=== PATIENT | female | born 1935 | race Caucasian/White ===

== ENCOUNTER 2016-06-12 07:46 | Emergency (ER) | payer OTHER ==
--- NOTE | 2016-06-12 09:27 | DIAGNOSTIC IMAGING REPORT ---
PROCEDURE: CT HEAD WITHOUT CONTRAST INDICATION: UNRESPONSIVE TECHNIQUE: Axial CT images were acquired through the head. Coronal and sagittal reformations were created. COMPARISON: None. FINDINGS: Mild motion through the posterior fossa. Moderate cerebral cortical atrophy. Mild hypodensity in the periventricular and subcortical white matter. No intracranial hemorrhage or extraaxial fluid collections. Ventricles are normal in size, shape and position. There is no mass, mass effect or midline shift. The romero-white matter differentiation is normal. There is no edema. Mild calcific atherosclerosis of the intracranial internal carotid arteries. The calvarium is intact. The paranasal sinuses and mastoid air cells are normally aerated. The extracranial soft tissues and orbits are normal. IMPRESSION: 1. No CT evidence of acute intracranial process. 2. Age related involutional and white matter changes. 3. Findings discussed with Dr. Pereyra at 09:[address] scans at this facility use dose modulation, iterative reconstruction, and/or weight-based dosing when appropriate to reduce radiation dose to as low as reasonably achievable.
--- NOTE | 2016-06-12 09:35 | DIAGNOSTIC IMAGING REPORT ---
PROCEDURE: CT CERVICAL SPINE W/O CONTRAST INDICATION: UNRESPONSIVE TECHNIQUE: Axial CT images were obtained through the cervical spine. Coronal and sagittal reformations were created. No comparison. COMPARISON: None. FINDINGS: The craniocervical junction is intact with moderate hypertrophic degeneration. The cervical vertebral bodies are normal in height without evidence of fracture. Moderate endplate spurring from C5 through T2. Moderately severe disc height loss C5-6 and mild disc height loss elsewhere, particularly T1-2. There is trace degenerative grade 1 anterolisthesis C4-5 and retrolisthesis C6-7 secondary to facet degeneration. There is ankylosis of right facet joints C2- C4. No suspicious density in the central canal. No significant central canal stenosis. No prevertebral or paravertebral soft-tissue swelling. Endotracheal tube is in place. Upper lungs are normally aerated. In the right posterior mediastinum, there is an ovoid, longitudinally oriented, soft tissue mass measuring approximately 3.5 x 3.5 by at least 7.6 cm anteriorly displacing the distal trachea extending at least to the kait. IMPRESSION: 1. No CT evidence of acute cervical spine trauma. 2. Age appropriate degenerative changes to the cervical spine. 3. Right posterior mediastinal mass, uncertain etiology. Further evaluation with contrast enhanced chest CT is recommended. 4. Discussed with Dr. Pereyra in the emergency room. All CT scans at this facility use dose modulation, iterative reconstruction, and/or weight-based dosing when appropriate to reduce radiation dose to as low as reasonably achievable.
--- NOTE | 2016-06-12 09:38 | DIAGNOSTIC IMAGING REPORT ---
PROCEDURE: XR CHEST 1 VIEW INDICATION: UNRESPONSIVE TECHNIQUE: Single view chest. 08:40 hours COMPARISON: None. FINDINGS: Endotracheal tube is in satisfactory position. Normal sized heart. Mild aortic atherosclerosis. Normally aerated lungs. Tiny bilateral pleural effusions versus bibasilar atelectatic change/prior. Intact osseous structures. IMPRESSION: 1. Tiny bilateral effusions versus bibasilar scarring. 2. Adequate position of endotracheal tube.
--- NOTE | 2016-06-12 11:39 | DIAGNOSTIC IMAGING REPORT ---
PROCEDURE: CTA THORAX ABDOMEN PELVIS INDICATION: DISSECTION TECHNIQUE: 116 ml of Isovue 370 was injected intravenously and axial images were obtained of the chest, abdomen, and pelvis with 3D sagittal and coronal MIP reconstructions. COMPARISON: Correlation made to CT cervical spine performed the same day FINDINGS: Right posterior mediastinal mass is a fluid-filled patulous esophagus with diffuse circumferential wall thickening which courses through the right posterior mediastinum into the esophageal hiatus. No evidence of transition point as the stomach demonstrates a moderate amount of fluid and air fluid level. Thoracic aorta is normal caliber with mild atherosclerotic calcification. No evidence of aneurysm, dissection, ulceration, or hematoma. The great vessels demonstrates normal branching pattern. Normal opacification of the pulmonary arterial tree without filling defect. The central pulmonary arteries are normal caliber. Heart size is normal. No pericardial effusion. No adenopathy or other mediastinal masses. Endotracheal tube is in place with the tip in satisfactory position above the kait. There is mild right lower lobe peribronchial thickening and dependent atelectatic change/small consolidation posteriorly throughout the right lower lobe. Mild left lower lobe bronchiectasis with very minor peribronchial thickening. Slight left lower lobe atelectasis. No pleural effusions or pneumothorax. Severe degenerative changes in both shoulders. No acute fractures. The abdominal aorta is normal in course, contour, and caliber with mild to moderate atherosclerosis. Renal arteries and superior mesenteric arteries are patent. The inferior mesenteric artery is visible and patent. Iliac bifurcations appear normal. Mild inflammatory changes and trace fluid in the lesser sac adjacent to the otherwise normal appearing pancreas. Hyperemic mucosa mildly distended, fluid- filled stomach. No extraluminal gas. The proximal duodenum is also fluid-filled and distended. No focal inflammatory changes. There are a few loops of centralized anterior moderately prominent small bowel without transition point. The colon demonstrates diffuse diverticulosis. The liver is mildly hypodense. The gallbladder wall is diffusely thickened, nonspecific. The adrenal glands, spleen, kidneys, inferior vena cava and the ureters appear normal. Small fat containing right inguinal hernia. Pelvic arteries are patent with mild atherosclerotic calcification. The lower bowel loops including colon and rectum demonstrate moderate retained, mainly rectal stool. No surrounding inflammatory changes. Chase catheter decompresses urinary bladder. The uterus is surgically absent. No free fluid or adenopathy. Osseous structures demonstrate degenerative changes right hip replacement hardware is present. As well as right hip replacement hardware. IMPRESSION: 1. Right superior mediastinal mass is patulous, thickened, fluid-filled esophagus. In combination with distended, fluid-filled stomach, NG tube placement is recommended. 2. Bilateral lower lobe peribronchial thickening and mild atelectatic changes. Findings suggestive of bronchitis, uncertain chronicity. 3. No pulmonary embolus or aortic pathology. 4. Nonspecific lesser sac inflammation in the upper abdomen, with mildly hyperemic gastric mucosa may suggest diffuse gastritis. This could be reactive to other systemic process. 5. Prominence loops of small bowel suggest ileus, likely reactive. 6. Diverticulosis without acute diverticulitis. 7. Findings called to the emergency room.
--- NOTE | 2016-06-12 11:40 | DIAGNOSTIC IMAGING REPORT ---
PROCEDURE: XR CHEST 1 VIEW INDICATION: POST CENTRAL LINE PLACEMENT TECHNIQUE: Single view chest. 09:37 hours COMPARISON: 08:40 hours FINDINGS: New right IJ central venous line appears in good position. Endotracheal tube is stable. Stable cardiomediastinal contour with mild prominence of the right paratracheal stripe secondary to distended esophagus seen on CT scan. No significant central venous congestion. No pneumothorax. Stable osseous structures. IMPRESSION: 1. Good placement of right IJ central venous line. 2. Otherwise stable.
--- NOTE | 2016-06-12 11:55 | ED CLINICAL REPORT ---
Clinical Report - Physicians/Mid Levels [facility] [address] [place] [address] 06/12/2016 7:47 Patient: KAILYN NEWMAN Time Seen: 0748. Arrived- By ambulance. Historian- EMS personnel. Unobtainable due to patient's altered mental status. HISTORY OF PRESENT ILLNESS Chief Complaint: altered. This started unknown. last seen yesterday. and is still present. It is not gone now. It has been constant (unknown timing). (lives with grand daughter. life alert paged medics to the house. no known abnormal behavior noted by family. unknown why or who life alert was activated per medics.). Similar symptoms previously: ( unable to obtain secondary to patient's medical condition). Recent medical care: ( unable to obtain secondary to patient's medical condition). REVIEW OF SYSTEMS Unobtainable due to patient's altered mental status. PAST HISTORY See nurses notes. Medications: Omeprazole Oral 20 mg, daily. Allergies: NKDA. SOCIAL HISTORY unknown however medics report bottle of alcohol near by. FAMILY HISTORY Unable to obtain family medical history due to patient's altered mental status. ADDITIONAL NOTES The nursing notes have been reviewed. PHYSICAL EXAM Vital Signs: 06/12/2016 07:57 BP: 82/67. HR: 101. RR: 12. O2 saturation: 84%. Temp: 84.1 F. Hypotensive. Tachycardic. Hypothermic. Oxygen saturation low. Appearance: ( altered. obviously ill.). Patient in severe distress. (does not follow commands). Head: Head atraumatic. Eyes: Pupillary exam: Right pupil 7mm and reactive to light directly and consensually and with accommodation. Left pupil: 7mm and reactive to light directly and consensually and with accommodation. ENT: Airway intact. Dry mucous membranes present. (dark dried blood to the oropharynx). Neck: Normal inspection. Neck supple. CVS: Abnormal rhythm. Heart sounds normal. Pulses normal. Respiratory: No respiratory distress. Breath sounds normal. No rales, wheezes or rhonchi. Abdomen: Soft and nontender. No organomegaly. Back: Normal inspection. Skin: No cyanosis. Pallor. Cool skin. No skin rash. Extremities: Extremities exhibit normal ROM. No lower extremity edema. Neuro: Altered mental status. Alertness is decreased. Abnormal verbal response (no verbalization). (no facial droop. moves all 4 extremities purposefully but does not follow commands. eyes open spontaneously.). LABS, X-RAYS, AND EKG EKG: Atrial fibrillation (88). Normal QRS complex. Prolonged QT. No ST elevation. EKG signs of hypothermia. small blair waves in V4. The study has been interpreted contemporaneously. The study has been independently viewed by me. Artifact present. Chest X-ray: (PROCEDURE: XR CHEST 1 VIEW INDICATION: UNRESPONSIVE TECHNIQUE: Single view chest. 08:40 hours COMPARISON: None. FINDINGS: Endotracheal tube is in satisfactory position. Normal sized heart. Mild aortic atherosclerosis. Normally aerated lungs. Tiny bilateral pleural effusions versus bibasilar atelectatic change/prior. Intact osseous structures. IMPRESSION: 1. Tiny bilateral effusions versus bibasilar scarring. 2. Adequate position of endotracheal tube.). Chest X-ray #2: (interval placement of right IJ. no pneumothorax). Views: AP (portable). The X-rays were independently viewed by me and interpreted contemporaneously by me. CT C-Spine: (PROCEDURE: CT CERVICAL SPINE W/O CONTRAST INDICATION: UNRESPONSIVE TECHNIQUE: Axial CT images were obtained through the cervical spine. Coronal and sagittal reformations were created. No comparison. COMPARISON: None. FINDINGS: The craniocervical junction is intact with moderate hypertrophic degeneration. The cervical vertebral bodies are normal in height without evidence of fracture. Moderate endplate spurring from C5 through T2. Moderately severe disc height loss C5-6 and mild disc height loss elsewhere, particularly T1-2. There is trace degenerative grade 1 anterolisthesis C4-5 and retrolisthesis C6-7 secondary to facet degeneration. There is ankylosis of right facet joints C2-C4. No suspicious density in the central canal. No significant central canal stenosis. No prevertebral or paravertebral soft-tissue swelling. Endotracheal tube is in place. Upper lungs are normally aerated. In the right posterior mediastinum, there is an ovoid, longitudinally oriented, soft tissue mass measuring approximately 3.5 x 3.5 by at least 7.6 cm anteriorly displacing the distal trachea extending at least to the kait. IMPRESSION: 1. No CT evidence of acute cervical spine trauma. 2. Age appropriate degenerative changes to the cervical spine. 3. Right posterior mediastinal mass, uncertain etiology. Further evaluation with contrast enhanced chest CT is recommended.). The study was independently viewed by me and interpreted by the radiologist. The study was discussed with the radiologist (via pacs). CT Head: (PROCEDURE: CT HEAD WITHOUT CONTRAST INDICATION: UNRESPONSIVE TECHNIQUE: Axial CT images were acquired through the head. Coronal and sagittal reformations were created. COMPARISON: None. FINDINGS: Mild motion through the posterior fossa. Moderate cerebral cortical atrophy. Mild hypodensity in the periventricular and subcortical white matter. No intracranial hemorrhage or extraaxial fluid collections. Ventricles are normal in size, shape and position. There is no mass, mass effect or midline shift. The romero-white matter differentiation is normal. There is no edema. Mild calcific atherosclerosis of the intracranial internal carotid arteries. The calvarium is intact. The paranasal sinuses and mastoid air cells are normally aerated. The extracranial soft tissues and orbits are normal. IMPRESSION: 1. No CT evidence of acute intracranial process. 2. Age related involutional and white matter changes.). Head CT performed without contrast. The study was independently viewed by me and interpreted by the radiologist. The study was discussed with the radiologist (via pacs). Laboratory Tests: UA-Culture if indicated: (MILO: 06/12/2016 08:15) ( MsgRcvd 06/12/2016 10:46) Final results Test Result Flag Units (Reference) URINE COLOR YELLOW URINE APPEARANCE CLEAR URINE GLUCOSE NEGATIVE (NEGATIVE) URINE BILIRUBIN NEGATIVE (NEGATIVE) URINE KETONE 1+ (NEGATIVE) URINE SPECIFIC GRAVITY >= 1.030 (1.010-1.030) URINE PH 5.0 (5.0-8.0) URINE PROTEIN 1+ (NEGATIVE) URINE UROBILINOGEN 0.2 EU/dL (0.2-1.0) URINE NITRITE POSITIVE (NEGATIVE) URINE BLOOD 3+ (NEGATIVE) URINE LEUK ESTERASE NEGATIVE (NEGATIVE) URINE RBC 5-10 rbc/hpf (0-1) URINE WBC 1-3 wbc/hpf (0-1) URINE EPITHELIAL CELLS 5-10 EPI/hpf (0-5) URINE BACTERIA MODERATE (2+ TO 3+) (NONE SEEN) URINE COMMENT CULTURE INDICATED URINE CULTURES ARE SET-UP BASED ON THE FOLLOWING CRITERIA:POSITIVE NITRITEPOSITIVE LEUKOCYTE ESTERASEGREATER THAN 10 WHITE BLOOD CELLSMODERATE (2+) OR GREATER BACTERIA [id number]: (MILO: 06/12/2016 08:15) ( [facility] 06/16/2016 11:46) Final results Test Result Flag Units (Reference) ETHANOL URINE 0.201 Verified by repaet analysis CBC w Diff: (MILO: 06/12/2016 09:42) ( [facility] 06/12/2016 10:22) Final results Test Result Flag Units (Reference) WHITE BLOOD COUNT 19.8 H K/uL (4.5-11.5) RED BLOOD COUNT 3.16 L M/uL (4.00-5.20) HEMOGLOBIN 9.8 L gm/dL (12.0-16.0) HEMATOCRIT 33.1 L % (36.0-46.0) MEAN CELL VOLUME 105 H fL (80-100) MEAN CORPUSCULAR HGB 31 pg (26-34) MEAN CORPUSCULAR HGB CONC 30 L g/dL (31-37) RED CELL DISTRIBUTION WIDTH 23.0 H % (11.6-14.8) PLATELET COUNT 348 K/uL (150-400) NEUTROPHIL % 84.1 H % (50-75) LYMPH % 10.3 L % (25-40) MONO % 5.5 % (3-14) EOSINOPHIL % 0.1 % (0-4) BASOPHIL % 0 % (0-2) RBC MORPHOLOGY 1+ KEITH CELLS~~OCC SCHISTOCYTES~~2+ ANISOCYTOSIS~~2+ POIKILOCYTOSIS PT with INR: (MILO: 06/12/2016 08:15) ( [facility] 06/12/2016 08:48) Final results Test Result Flag Units (Reference) INR 1.6 H (0.8-1.2) Low Intensity Therapy: INR 1.5-2.0 PT range 18.5-23.1Mod.Intensity Therapy: INR 2.0-3.0 PT range 23.1-31.5High Intensity Therapy: INR 2.5-3.5 PT range 27.4-35.5High Intensity Therapy 2: INR 3.0-4.0 PT range 31.5-39.3 APTT 33 SECONDS (24-34) Lactate, Serum: (MILO: 06/12/2016 09:53) ( MsgRcvd 06/12/2016 10:26) Final results Test Result Flag Units (Reference) LACTIC ACID 25.2 H mmol/L (0.4-2.0) CMP: (MILO: 06/12/2016 09:44) ( MsgRcvd 06/12/2016 10:06) Final results Test Result Flag Units (Reference) GLUCOSE 294 H mg/dL (70-110) BUN 35 H mg/dL (7-18) CREATININE 1.9 H mg/dL (0.6-1.3) Estimated GFR 26.90 mL/min Estimated GFR- 32.60 mL/min Note: Persistent reduction over 3 months in eGFR<60 mL/min/1.73 m2 defines CKD. Patients with eGFR values>=60 mL/min/1.73 m2 may also have CKD if evidence ofpersistent proteinuria. Additional information may be foundat www.kidney.org. SODIUM 149 H mmol/L (136-145) POTASSIUM 3.1 L mmol/L (3.5-5.1) CHLORIDE 103 mmol/L (98-107) CARBON DIOXIDE 2 *L mmol/L (21-32) CRITICAL RESULTS CALLEDCalled to EDGAR CORNELL,ER 06/12/16 1006Were 2 patient identifiers used? YWas the result read back? Y CALCIUM 9.2 mg/dL (8.5-10.1) TOTAL PROTEIN 5.9 L g/dL (6.4-8.2) ALBUMIN 2.9 L g/dL (3.3-5.0) BILIRUBIN, TOTAL 0.3 mg/dL (0.0-1.0) ALKALINE PHOSPHATASE 169 H U/L (46-116) AST (SGOT) 166 H U/L (15-37) ALT (SGPT) 92 H U/L (12-78) [id number]: (MILO: 06/12/2016 08:57) ( MsgRcvd 06/12/2016 09:25) Final results Test Result Flag Units (Reference) PROCALCITONIN <0.5 ng/mL (0-0.5) PCT Concentration: Interpretation : Risk/option for action PCT <=0.5 ng/mL : Systemic : Low risk forinfection(sepsis): progression to severeis not likely. : systemic infection.Local bacterial : CAUTION-PCT levelsinfection is : below 0.5 ng/mL do notpossible. : exclude an infection,because localizedinfections (withoutsystemic signs) may beassociated with suchlow levels. If PCT ismeasured very earlyafter a bacterialchallenge (usually <6hours), these valuesmay still be low. Inthis case PCT shouldbe re-assessed 6-24hours later. PCT >0.5 and : Systemic infection: Moderate risk for<= 2 ng/mL : (sepsis) is : progression to severepossible, but : systemic infection.other conditions : The patient should beare known to : closely monitoredelevate PCT. : both clinically andby re-assessing PCTwithin 6-24 hours. PCT > 2 ng/mL : Systemic infection: High risk for(sepsis) is likely: progression to severeunless other : systemic infection.causes are known. : PCT >= 10 ng/mL : Important systemic: High likelihood ofinflammatory : severe sepsis orresponse, almost : septic shock.exclusively due to:severe bacterial :sepsis or septic :shock. : Ammonia Level: (MILO: 06/12/2016 08:15) ( [facility] 06/12/2016 08:55) Final results Test Result Flag Units (Reference) AMMONIA 129 H umol/L (11-32) Salicylate Level: (MILO: 06/12/2016 08:15) ( [facility] 06/12/2016 09:07) Final results Test Result Flag Units (Reference) SALICYLATE 3.1 mg/dL (2.8-20) Lipase: (MILO: 06/12/2016 08:15) ( [facility] 06/12/2016 09:42) Final results Test Result Flag Units (Reference) LIPASE 226 U/L (73-393) CPK 578 H U/L (24-260) TROPONIN I <0.05 ng/mL (0.00-1.5) TROPONIN REFERENCE RANGE:<0.1 NEGATIVE0.1-1.5 INDETERMINANT>1.5 POSITIVE ACETAMINOPHEN 1.5 L ug/mL (10-30) ETHYL ALCOHOL 167 H mg/dL (3-10) THYROID STIMULATING HORMONE 0.765 uIU/mL (0.30-3.74) CK-MB 7.5 H ng/mL (0.5-3.2) %CKMB 1.3 % (0.0-4.0) ACETONE, SERUM QUALITATIVE NEGATIVE (NEGATIVE) Urine Drug Screen: (MILO: 06/12/2016 08:15) ( [facility] 06/12/2016 09:07) Final results Test Result Flag Units (Reference) AMPHETAMINE/METHAMPHETAMINE NEGATIVE (NEGATIVE) BARBITURATE NEGATIVE (NEGATIVE) BENZODIAZEPINE NEGATIVE (NEGATIVE) CANNABINOID NEGATIVE (NEGATIVE) COCAINE NEGATIVE (NEGATIVE) ECSTASY NEGATIVE (NEGATIVE) METHADONE NEGATIVE (NEGATIVE) OPIATE NEGATIVE (NEGATIVE) The urine drug screen is a qualitative screening test fordrug overdose and abuse. All screen results should beconsidered as presumptive.Drugs screened for are as follows:BenzodiazepinesCocaineAmphetamines/MetamphetaminesTHC (Tetrahydrocannabinol)OpiatesBarbituratesEcstasyMethadonePositive results are unconfirmed. For confirmation, notifythe lab for the specimen to be sent to the reference lab.All confirmations must be performed by a differentmethodology.The ingestion of natural herbal and plant productscontaining Ephedra/Ephedra metabolites can produce in urineone or more substances capable of cross reacting withamphetamine/methamphetamine immunoassays. These testsprovide a preliminary result only. A more specificalternative chemical method must be used to obtain aconfirmed analytical result. ABG: (MILO: 06/12/2016 10:58) ( MsgRcvd 06/13/2016 10:45) Final results Test Result Flag Units (Reference) FIO2 100 % (20-101) MODIFIED SUNG TEST POSITIVE? YES ABG PCO2 33.3 L mmHg (35-45) ABG PO2 452.0 *H mmHg (60.0-80.0) ABG KbBxT3s 215.0 H mmHg (7.0-14.0) *NOTE: Normal rangeis based on aFIO2 of 21% ABG SAT O2 98.8 % (95.1-100.0) ABG TOTAL HEMOGLOBIN 8.6 L g/dL (12.0-16.0) ABG O2 HEMOGLOBIN 97.5 % (95.0-100.0) ABG CARBOXYHEMOGLOBIN 0.7 % (0.5-1.5) ABG METHEMOGLOBIN 0.6 % (0.4-1.5) ABG RHEMOGLOBIN 1.2 % ABG: (MILO: 06/12/2016 09:52) ( [facility] 06/13/2016 10:44) Final results Test Result Flag Units (Reference) FIO2 100 % (20-101) MODIFIED SUNG TEST POSITIVE? YES ABG PCO2 41.5 mmHg (35-45) ABG PO2 120.0 H mmHg (60.0-80.0) ABG GdDiI2s 539.0 H mmHg (7.0-14.0) *NOTE: Normal rangeis based on aFIO2 of 21% ABG SAT O2 88.0 L % (95.1-100.0) ABG TOTAL HEMOGLOBIN 9.3 L g/dL (12.0-16.0) ABG O2 HEMOGLOBIN 86.6 L % (95.0-100.0) ABG CARBOXYHEMOGLOBIN 0.8 % (0.5-1.5) ABG METHEMOGLOBIN 0.8 % (0.4-1.5) ABG RHEMOGLOBIN 11.8 % Culture, Urine: (MILO: 06/12/2016 08:05) ( [facility] [place] [place] 06/15/2016 11:33) Final results Test Result Flag Units (Reference) CULTURE, URINE DATE: 06/15/16 PRELIM REPORT: FINAL REPORT -- ESCCOL ESBL ISOLATED?: ESBL ISOLATED * QUANTITATIVE URINE GROWTH: GREATER THAN 100,000 CFU/mL AMOXICILLIN/CLAVULANATE AMPICILLIN R AMPICILLIN/SULBACTAM I CEFAZOLIN R CEFTRIAXONE R CEFEPIME R CEFUROXIME CIPROFLOXACIN S ERTAPENEM S GENTAMICIN R IMIPENEM S LEVOFLOXACIN S MEROPENEM S NITROFURANTOIN S TETRACYCLINE PIP/TAZO S TRIMETHOPRIM/SULFAMETHOXAZOLE R Blood Culture: (MILO: 06/12/2016 09:46) ( [facility] [place] [place] 06/17/2016 09:48) Final results Is patient on antibiotics? N If so, list antibiotic: N/A Test Result Flag Units (Reference) CULTURE, BLOOD NO GROWTH Blood Culture: (MILO: 06/12/2016 08:15) ( [facility] [place] [place] 06/17/2016 08:40) Final results Is patient on antibiotics? N If so, list antibiotic: N/A Test Result Flag Units (Reference) CULTURE, BLOOD NO GROWTH Type & Screen: (MILO: 06/12/2016 11:49) ( MsgRcvd 06/12/2016 13:18) Final results Test Result Flag Units (Reference) PATIENT BLOOD TYPE B Negative Above is a corrected result. Previously reported on ( MsgRcvd 06/12/2016 12:55) as: PATIENT BLOOD TYPE B Negative ANTIBODY SCREEN NEGATIVE . PROGRESS AND PROCEDURES Intubation: ED physician at bedside. Intubated with 7.0 cuffed endotracheal tube. Head placed in neutral position. Size 3 Giuliano blade used. Intubated via orotracheal route. Administered induction agent- ketamine and neuromuscular blocking agent- rocuronium. No complications. Placement confirmed by direct visualization, equal breath sounds and rise and fall of chest wall, rising O2 saturations and end tidal CO2 monitor. Placement confirmed by ET tube CO2 detection device. Tube secured with device and connected to ventilator. (versed). A chest x-ray was obtained: showing good tube position. Tube marked at lip (23 cm). Technique: direct visualization and video assisted. Estimated blood loss: n/a. Procedure successful; two attempts. Central Line Placement: A standardized protocol was used for insertion. Consent precluded by urgency of clinical situation. O2 administered. Placed on pulse oximeter and media monitor. Sedation given. Placed in Trendelenburg. Hand hygiene observed, sterile barrier precautions adhered to (cap, mask, gown, gloves and large sterile sheet) and chlorhexidine skin antisepsis used .16g triple lumen central line placed using Seldinger technique. Good blood return observed. Catheter was secured. Dressing applied. The patient was clinically stable following the procedure. Post-procedure X-ray showed no pneumothorax and good catheter tip position. Estimated blood loss: 2 mL. ( no complications. unable to obtain consent. patient non-verbal and not responsive. unable to contact family and need for line urgent. biopatch applied.). Course of Care: the patient is an 81-year-old female presenting for evaluation of abnormal mental status. Patient was found down. Per EMS, patient was noted to be in her "game room. "Patient had poor games that were strewn on the floor per EMS. There is also a dark colored substance that appeared to be coffee like inconsistency in a cup nearby. Patient was initially responding with yes or no to EMS however by the time she arrived to our emergency department, patient was not responding to anyverbal commands. Patient was moving all 4 extremities purposefully however. Patient was noted to be hypotensive and hypothermic while here in the emergency department. She was also noted to be hypoglycemic on Accu-Chek. Patient was noted to be below the detectable limit for the Accu-Chek. An amp ofD50 was given through the peripheral IV in the right lower extremity. Patient tolerated theblood glucose well. A U8upwjck saline drip was alsostarted through the warmer. Patient was noted to have a repeat Accu-Chek of 293. We will monitor thisclosely. In the meantime, active rewarming was performed. Considered having the patient's bladder irrigated with warm normal saline howeverdo not have the appropriate Chase catheter for this procedure to be done. Urinalysis was sent for evaluation. A regular Chase catheter was placed with a bladder temperature monitor. Patient was placed in a bearhug orand warm blankets were also applied. During her stay in the emergency department the patient was noted tobeon directable and could not prevent the patient from pulling at lines or tubes. Because of the patient's altered mental status and I'm surereason for her altered mental status and needing CT scan of the head, it was decided the patient needed to be intubated. In speaking with EMS, the patient did not have any advanced directive form known to them. There is a family member that also lives with the patient who did not know if the patient had a advanced directive. Emergent rapid sequence intubation was performed. Please see procedure note for further details. No complications noted. During patient's course here in the emergency department, her CT scan results did not show any intracranial abnormalitiessignificant for her presentation here in the emergency department. [facility] [place] [facility] and tolerated the CT scan well. Further lab tests were also ordered and the patient remained hypotensive Because of the patient's refractory hypotension despite aggressive fluid boluses, a central line was needed. Againinformed verbal consent or consent in general was not able to be obtained as were unable to contact family members in time and the procedure was emergent. A rightIJ was placed. Placement confirmed withchest x-ray. No pneumothorax. fluids are placed. We will head was also started through peripheral IV prior to the central line being placed as the patient was noted to be persistently hypotensive. Patient'smean arterial pressure was titrated to between 60 and 65. Patient's blood gas was noted to be significantly abnormal. At this time because of the patient's abnormality with lab values, poison control was consult at. We have discussed possible acetaminophenoverdose versus lactic acidosis versus toxic alcohol ingestion. The benefits for starting fomepizole outweigh the risks at this time. First dose was recommended by poison. We will start fomepazole. laboratory studies for toxic alcohol also been sent. The laboratory study is a send out. [employer]dn[employer] Officer needs to take the lab tests to [place]. We are currently awaiting results however will likely not influence the treatment for providing fomepizole initially for the loading dose. Recommendations were faxed over from poison control in regards to the dose of fomepizole. Patient's blood gas was confirmed to have a significant pH that was less than 6.5. CO2 noted to be significantly low. FiO2 and PO2 is noted to be sufficient. We will decrease the FiO2 to 40%. An amp of bicarbonate was also provided. We will hyperventilate the patient's to blow off excess carbonic acid In the form of CO2. During this time, we did also spoken to the son who is now at bedside. We had learned the patient was a long-standing alcoholic and suffered from depression. Yesterday was the patient's 's birthday. Patient had a history of attempting suicide with alcohol. Son is unsure of medications. Patient is noted to be diabetic however. Informed the son to contact family members and relay critical condition to loved ones and family. Discussed with son the likely poor prognosis given her presentation here in the emergency department. Condition at this time continues to be guarded and critical. We are currently trying to find a place that we'll have the facilities incapabilities needed for the patient's care. We had a call back fromtoxicology recommending that the patient likely needed to go to a place requiring dialysis for the persistent refractory acido The facility at [facility] does not have any availability for this beds. We are currently contacting [facility]. I spoken to the hospital day care supervisor who will page out to the on-call doctor. In addition during the time the CT scan and chest x-ray are being reviewed, the patient was noted to have a abnormal-appearing mass in the upper chest. There is concern for possible dissecting thoracic aortic aneurysm. Because of the patient's altered mental status and hypotension, patient could have significant intrathoracic and intra-abdominal processes occurring. Because of this the patient's CT scan of the thoracic abdominal and pelvic vasculature was obtained. Do not need to wait for creatinine as the patient's condition was emergent and life-threatening. Would need sedation answers from the CT scan and will address the potential for contrast-induced nephropathy at a later time and because of the patient's critical condition, the scan was more important. Additionally, there is newer Literature to support the use of IV contrast despite Poor renal function and no association with IV contrast-induced nephropathy. CT scan results did not show any signs of acute intrathoracic pathology concerning for dissection or pneumonia however patient had significantly distended esophagus and stomach because of fluid back up. NG tube will be placed. While NG tube is being placed, dark colored material that appeared to be coffee-ground in color and consistency was obtained. Because of the patient's signs and symptoms as well as history, we'll obtain type and cross. Hemoglobin is noted to be at 9 and hematocrit is noted to be 33. And potentially transfuse patient. Medications obtained. Patient on metformin. Possible lactic acidosis from metformin. spoke with Dr. Denise over at [facility] in [place]. Patient will be accepted there to the intensive care unit. Discussed with Dr. Denise current workup here in emergency department and working diagnosis at this time. No further recommendations. We're currently waiting transport. EMS CT is at 12:35 PM patient is currently holding steady with Levo and IV fluids. Patient's hypothermia is gradually improving. Patient is currently at 30.9C. Antibiotic for urinary tract infection have been given. No other known infectious etiology identified. Chest CT is clear. do not feel transfusion is indicated at this time is patient's hemoglobin and hematocrit areotherwise acceptable. Patientdoes not have any signs of acute decompensation since patient has been here in the emergency department. Patient's presentation is likely due toexcessive alcohol consumption andbeing down for an unknown amount of time secondary to this. patient was subsequently transferredwithout any Complications. oxygenation appears to be sufficient. FiO2 lowered from 100% to 40%. Of note, patient was unable to be transferred to a nearby hospital secondary to unavailable ICU beds with dialysis capabilities. Critical care performed (125 minutes). Time is exclusive of separately billable procedures. Time includes: direct patient care, patient reassessment, coordination of patient care, interpretation of data (laboratory data and arterial blood gases), review of patient's medical records, medical consultation, family consultation regarding treatment decisions and documentation of patient care. Consult obtained. poison. Disposition: Benefits, risks and alternatives to transfer explained to family. Transferred. [place]. CLINICAL IMPRESSION Severe anion gap acidosis refractory to treatment acute severe hypothermia acute severe hypotension acute toxic ingestion from toxic alcohol vs ethanol upper GI bleed severe depression severe lactic acidosis acute severe hypoglycemia urinary tract infection. (Electronically signed by Walter Cruz Dr. 06/19/2016 10:31) Addenda for KAILYN NEWMAN VisitID: [id number] Date: 06/12/2016 06/15/2016 13:39 urine c & s faxed to [facility], where pt was transferred (Electronically signed by Hodan Lawler R.N. 06/15/2016 13:39)
--- NOTE | 2016-06-12 11:55 | ED ORDER SUMMARY ---
..... Patient: KAILYN NEWMAN OrderSheet [facility] VisitID: [id number] [address] [place] [address] 81y, F Registration Date/Time: 06/12/2016 ORDER SHEET Weight: 65.7 kg (measured) Allergies: NKDA GENERAL ORDERS: Decaler (Continuous) (Altered Mentation) (07:54 06/12/2016 Kathy R.N. verbal order read back to Bonifacio Boyer) (9:12 MWinterer R.N.) (9:13 JRomanelli R.N.) CBC w Diff Urgent (07:56 06/12/2016 Kathy R.N. verbal order read back to Bonifacio Boyer) (Cancelled: Duplicate Order8:04 Timo) CMP Urgent (07:56 06/12/2016 Kathy R.N. verbal order read back to Bonifacio Boyer) (Cancelled: Duplicate Order8:04 Timo) POC Glucose (07:56 06/12/2016 Kathy R.N. verbal order read back to Bonifacio Boyer) (8:32 RKaruga) Decaler (Continuous) (altered) (07:56 06/12/2016 Bonifacio Boyer) (9:12 MWinterdale R.N.) Chest 1V Urgent (07:56 06/12/2016 Bonifacio Boyer) (Ack 8:31 Timo) (9:25 Kathy R.N.) CT Head wo Cont Urgent (07:57 06/12/2016 Bonifacio Boyer) (Ack 8:31 Timo) (9:26 JRprimitivo R.N.) CT Cervical Spine wo Cont Urgent (07:57 06/12/2016 Bonifacio Boyer) (Ack 8:31 Timo) (9:26 Kathy R.N.) CBC w Diff Urgent (07:59 06/12/2016 Bonifacio Boyer) (Ack 8:03 Timo) (9:11 JRomanelli R.N.) CMP Urgent (07:59 06/12/2016 Bonifacio Boyer) (Ack 8:03 Timo) (9:11 JRomanelli R.N.) UA-Culture if indicated Urgent (07:59 06/12/2016 Bonifacio Boyer) (Ack 8:08 Timo) (9:11 Mirthaelli R.N.) PT with INR Urgent (07:59 06/12/2016 Bonifacio Boyer) (Ack 8:08 ALYSIAaruga) (9:11 Kathy R.N.) PTT Urgent (07:59 06/12/2016 Bonifacio Boyer) (Ack 8:08 RKaruga) (9:11 omanelli R.N.) Urine Drug Screen Urgent (07:59 06/12/2016 Bonifacio Boyer) (Ack 8:08 Meliuga) (9:11 Kathy R.N.) Lipase Urgent (07:06/12/2016 Bonifacio Boyer) (Ack 8:08 Meliuga) (9:11 Kathy R.N.) Troponin-I Urgent (07:59 06/12/2016 Bonifacio Boyer) (Ack 8:31 RKaruga) (9:11 omanelli R.N.) Ammonia Level Urgent (07:59 06/12/2016 Bonifacio Boyer) (Ack 8:31 Timo) (9:36 Kathy R.N.) Acetone, Serum Urgent (07:59 06/12/2016 Bonifacio Boyer) (Ack 8:31 Meliuga) (9:11 Kathy R.N.) TSH Urgent (07:59 06/12/2016 Bonifacio Boyer) (Ack 8:31 RKaruga) (9:11 omanelli R.N.) Salicylate Level Urgent (07:59 06/12/2016 Bonifacio Boyer) (Ack 8:31 Meliuga) (9:25 Kathy R.N.) Acetaminophen Level Urgent (07:59 06/12/2016 Bonifacio Boyer) (Ack 8:31 Meliuga) (9:25 JRomanelli R.N.) Ethyl Alcohol Urgent (07:59 06/12/2016 Bonifacio Boyer) (Ack 8:31 Timo) (9:25 omanelli R.N.) Pulse oximeter (07:59 06/12/2016 Bonifacio Boyer) (9:12 MWinterer R.N.) (9:13 JRprimitivo R.N.) EKG - ER Stat (07:59 06/12/2016 Bonifacio Boyer) (8:32 RKaruga) Chase Catheter (07:59 06/12/2016 Bonifacio Boyer) (9:11 Kathy R.N.) ZEINA Hugger (07:59 06/12/2016 Bonifacio Boyer) (9:11 JRomanelli R.N.) Blood Culture (No) (N/A) Urgent (08:35 06/12/2016 Bonifacio Boyer) (Ack 8:45 RKaruga) (9:25 aKthy R.N.) CPK Urgent (08:35 06/12/2016 Bonifacio Boyer) (Ack 8:45 RKaruga) (9:25 Kathy R.N.) PCT (Procalcitonin) Urgent (08:35 06/12/2016 Bonifacio Boyer) (Ack 8:45 RKaruga) (9:25 JRomanelli R.N.) Chest 1V Urgent (09:34 06/12/2016 RKmanan verbal order read back to Bonifacio Boyer) (Ack 9:39 RKaruga) (9:49 Kathy R.N.) - (irrigate bladder with warmed NS) (09:47 06/12/2016 Bonifacio Boyer) (Cancelled: Unavailable/Mat/Equip15:30 Kathy R.N.) CTA Thorax/Abdomen/Pelvis (No) (Do not need to wait for GFR) Urgent (09:48 06/12/2016 Bonifacio Boyer) (Ack 9:51 RKaruga) (10:30 Kathy R.N.) Lactate, Serum Urgent (09:50 06/12/2016 Bonifacio Boyer) (Ack 9:51 RKaruga) (12:16 omanelli R.N.) ABG (G) Urgent (09:52 06/12/2016 Bonifacio Boyer) (Ack 9:53 RKaruga) (10:26 Kathy R.N.) - (toxic alcohol labs to [facility]) (10:21 06/12/2016 Bonifacio Boyer) (13:09 Tom Aquino) - (consult poison control) (10:23 06/12/2016 Bonifacio Boyer) (10:52 Tom Aquino) - (Urine micro for crystals) (10:39 06/12/2016 Bonifacio Boyer) (12:17 Kathy Aquino) NG Tube (to intermittent suction) (10:56 06/12/2016 Bonifacio Boyer) (12:17 Kathy Aquino) ABG (G) Urgent (10:58 06/12/2016 Bonifacio Boyer) (11:27 Tom Aquino) Type & Screen Urgent (11:33 06/12/2016 Bonifacio Boyer) (Ack 12:39 [facility] (15:30 Kathy Aquino) MEDICATION ORDERS: Levophed Drip IV : 0.5-12 mcg/min (NOW) (09:16 06/12/2016 Kathy Aquino verbal order read back to Bonifacio Boyer) (9:23 Kathy Aquino) (Cancelled: Duplicate Order12:15 Bonifacio Boyer) - (rocuronium 100 mg IV push for RSI) (09:46 06/12/2016 Bonifacio Boyer) (9:55 Kathy Aquino) - (fomepizole 15 mg/kg over 30 minutes via IV) (10:44 06/12/2016 Bonifacio Boyer) (11:17 Kathy Aquino) -- (10:45 06/12/2016 Bonifacio Boyer) (Cancelled: Physician Order10:54 Tom Aquino) Levophed Drip IV : initial bolus 0, then 8 mcg/min for cont (HIGH ALERT MEDICATION, NOW) (titrate to map >60 max 20 mcg/min) (12:15 06/12/2016 Bonifacio Boyer) (14:55 Kathy Aquino) IV FLUIDS: IV NS : initial bolus none -, then 250 mL/hr (NOW) (07:54 06/12/2016 Kathy Aquino verbal order read back to Bonifacio Boyer) (9:10 Kathy Aquino) D-50 IV 1 amp (HIGH ALERT MEDICATION, NOW) (07:58 06/12/2016 Bonifacio Boyer) IV NS with %5 dextrose: initial bolus 2000 mL/hr, then none - for X1 (NOW) (through warmer) (07:59 06/12/2016 Bonifacio Boyer) (9:23 Kathy Aquino) Versed IV 5 mg/hr (start now, titrate to effect. max of 10 mg/hr) (08:36 06/12/2016 Bonifacio Boyer) (9:15 Kathy Aquino) Ceftriaxone IV 2 gm/50mL (NOW) (08:55 06/12/2016 Bonifacio Boyer) (9:49 Kathy Aquino) Ketamine IV 50 mg (for RSI) (09:45 06/12/2016 Bonifacio Boyer) (9:53 Kathy Aquino) Fomepizole IV per poison protocol (one now per poison protocol fax) (10:36 06/12/2016 Bonifacio Boyer) (Cancelled: Physician Order10:54 Tom Aquino) Sodium Bicarbonate IV 1 amp (IV push now) (10:57 06/12/2016 Bonifacio Boyer) (11:01 Tom Aquino) IV NS : initial bolus none -, then 200 mL/hr for 5h (NOW) (12:06 06/12/2016 Bonifacio Boyer) (12:15 Kathy Aquino) ORDER SHEET NOTES: Reason for Study: Central Line Placement [Electronically signed by Afshin Evans R.N. (15:49 06/12/2016)] [Electronically signed by Walter Cruz Dr. (10:31 06/19/2016)] [Electronically locked/signed by Afshin Evans R.N. (15:49 06/12/2016)]
--- NOTE | 2016-06-12 11:55 | ED ORDER SUMMARY ---
..... Patient: KAILYN NEWMAN OrderSheet [facility] VisitID: [id number] [address] [place] [address] 81y, F Registration Date/Time: 06/12/2016 ORDER SHEET Weight: 65.7 kg (measured) Allergies: NKDA GENERAL ORDERS: Education Paraprofessional (Continuous) (Altered Mentation) (07:54 06/12/2016 Kathy R.N. verbal order read back to Bonifacio Boyer) (9:12 MWinterer R.N.) (9:13 JRomanelli R.N.) CBC w Diff Urgent (07:56 06/12/2016 Kathy R.N. verbal order read back to Bonifacio Boyer) (Cancelled: Duplicate Order8:04 Timo) CMP Urgent (07:56 06/12/2016 Kathy R.N. verbal order read back to Bonifacio Boyer) (Cancelled: Duplicate Order8:04 Timo) POC Glucose (07:56 06/12/2016 Kathy R.N. verbal order read back to Bonifacio Boyer) (8:32 RKaruga) Education Paraprofessional (Continuous) (altered) (07:56 06/12/2016 Bonifacio Boyer) (9:12 MWinterdale R.N.) Chest 1V Urgent (07:56 06/12/2016 Bonifacio Boyer) (Ack 8:31 Timo) (9:25 Kathy R.N.) CT Head wo Cont Urgent (07:57 06/12/2016 Bonifacio Boyer) (Ack 8:31 Timo) (9:26 JRprimitivo R.N.) CT Cervical Spine wo Cont Urgent (07:57 06/12/2016 Bonifacio Boyer) (Ack 8:31 Timo) (9:26 Kathy R.N.) CBC w Diff Urgent (07:59 06/12/2016 Bonifacio Boyer) (Ack 8:03 Timo) (9:11 JRomanelli R.N.) CMP Urgent (07:59 06/12/2016 Bonifacio Boyer) (Ack 8:03 Timo) (9:11 JRomanelli R.N.) UA-Culture if indicated Urgent (07:59 06/12/2016 Bonifacio Boyer) (Ack 8:08 Timo) (9:11 Mirthaelli R.N.) PT with INR Urgent (07:59 06/12/2016 Bonifacio Boyer) (Ack 8:08 ALYSIAaruga) (9:11 aKthy R.N.) PTT Urgent (07:59 06/12/2016 Bonifacio Boyer) (Ack 8:08 RKaruga) (9:11 omanelli R.N.) Urine Drug Screen Urgent (07:59 06/12/2016 Bonifacio Boyer) (Ack 8:08 Meliuga) (9:11 Kathy R.N.) Lipase Urgent (07:06/12/2016 Bonifacio Boyer) (Ack 8:08 Meliuga) (9:11 Kathy R.N.) Troponin-I Urgent (07:59 06/12/2016 Bonifacio Boyer) (Ack 8:31 RKaruga) (9:11 omanelli R.N.) Ammonia Level Urgent (07:59 06/12/2016 Bonifacio Boyer) (Ack 8:31 Timo) (9:36 Kathy R.N.) Acetone, Serum Urgent (07:59 06/12/2016 Bonifacio Boyer) (Ack 8:31 Meliuga) (9:11 Kathy R.N.) TSH Urgent (07:59 06/12/2016 Bonifacio Boyer) (Ack 8:31 RKaruga) (9:11 omanelli R.N.) Salicylate Level Urgent (07:59 06/12/2016 Bonifacio Boyer) (Ack 8:31 Meliuga) (9:25 Kathy R.N.) Acetaminophen Level Urgent (07:59 06/12/2016 Bonifacio Boyer) (Ack 8:31 Meliuga) (9:25 JRomanelli R.N.) Ethyl Alcohol Urgent (07:59 06/12/2016 Bonifacio Boyer) (Ack 8:31 Timo) (9:25 omanelli R.N.) Pulse oximeter (07:59 06/12/2016 Bonifacio Boyer) (9:12 MWinterer R.N.) (9:13 JRprimitivo R.N.) EKG - ER Stat (07:59 06/12/2016 Bonifacio Boyer) (8:32 RKaruga) Chase Catheter (07:59 06/12/2016 Bonifacio Boyer) (9:11 Kathy R.N.) ZEINA Hugger (07:59 06/12/2016 Bonifacio Boyer) (9:11 JRomanelli R.N.) Blood Culture (No) (N/A) Urgent (08:35 06/12/2016 Bonifacio Boyer) (Ack 8:45 RKaruga) (9:25 Kathy R.N.) CPK Urgent (08:35 06/12/2016 Bonifacio Boyer) (Ack 8:45 RKaruga) (9:25 Kathy R.N.) PCT (Procalcitonin) Urgent (08:35 06/12/2016 Bonifacio Boyer) (Ack 8:45 RKaruga) (9:25 JRomanelli R.N.) Chest 1V Urgent (09:34 06/12/2016 RKmanan verbal order read back to Bonifacio Boyer) (Ack 9:39 RKaruga) (9:49 Kathy R.N.) - (irrigate bladder with warmed NS) (09:47 06/12/2016 Bonifacio Boyer) (Cancelled: Unavailable/Mat/Equip15:30 Kathy R.N.) CTA Thorax/Abdomen/Pelvis (No) (Do not need to wait for GFR) Urgent (09:48 06/12/2016 Bonifacio Boyer) (Ack 9:51 RKaruga) (10:30 Kathy R.N.) Lactate, Serum Urgent (09:50 06/12/2016 Bonifacio Boyer) (Ack 9:51 RKaruga) (12:16 omanelli R.N.) ABG (G) Urgent (09:52 06/12/2016 Bonifacio Boyer) (Ack 9:53 RKaruga) (10:26 Kathy R.N.) - (toxic alcohol labs to [facility]) (10:21 06/12/2016 Bonifacio Boyer) (13:09 Tom Aquino) - (consult poison control) (10:23 06/12/2016 Bonifacio Boyer) (10:52 Tom Aquino) - (Urine micro for crystals) (10:39 06/12/2016 Bonifacio Boyer) (12:17 Kathy Aquino) NG Tube (to intermittent suction) (10:56 06/12/2016 Bonifacio Boyer) (12:17 Kathy Aquino) ABG (G) Urgent (10:58 06/12/2016 Bonifacio Boyer) (11:27 Tom Aquino) Type & Screen Urgent (11:33 06/12/2016 Bonifacio Boyer) (Ack 12:39 [facility]) (15:30 Kathy Aquino) MEDICATION ORDERS: Levophed Drip IV : 0.5-12 mcg/min (NOW) (09:16 06/12/2016 Kathy Aquino verbal order read back to Bonifacio Boyer) (9:23 Kathy Aquino) (Cancelled: Duplicate Order12:15 Bonifacio Boyer) - (rocuronium 100 mg IV push for RSI) (09:46 06/12/2016 Bonifacio Boyer) (9:55 Kathy Aquino) - (fomepizole 15 mg/kg over 30 minutes via IV) (10:44 06/12/2016 Bonifacio Boyer) (11:17 Kathy Aquino) -- (10:45 06/12/2016 Bonifacio Boyer) (Cancelled: Physician Order10:54 Tom Aquino) Levophed Drip IV : initial bolus 0, then 8 mcg/min for cont (HIGH ALERT MEDICATION, NOW) (titrate to map >60 max 20 mcg/min) (12:15 06/12/2016 Bonifacio Boyer) (14:55 Kathy Aquino) IV FLUIDS: IV NS : initial bolus none -, then 250 mL/hr (NOW) (07:54 06/12/2016 Kathy Aquino verbal order read back to Bonifacio Boyer) (9:10 Kathy Aquino) D-50 IV 1 amp (HIGH ALERT MEDICATION, NOW) (07:58 06/12/2016 Bonifacio Boyer) IV NS with %5 dextrose: initial bolus 2000 mL/hr, then none - for X1 (NOW) (through warmer) (07:59 06/12/2016 Bonifacio Boyer) (9:23 Kathy Aquino) Versed IV 5 mg/hr (start now, titrate to effect. max of 10 mg/hr) (08:36 06/12/2016 Bonifacio Boyer) (9:15 Kathy Aquino) Ceftriaxone IV 2 gm/50mL (NOW) (08:55 06/12/2016 Bonifacio Boyer) (9:49 Kathy Aquino) Ketamine IV 50 mg (for RSI) (09:45 06/12/2016 Bnoifacio Boyer) (9:53 Kathy Aquino) Fomepizole IV per poison protocol (one now per poison protocol fax) (10:36 06/12/2016 Bonifacio Boyer) (Cancelled: Physician Order10:54 Tom Aquino) Sodium Bicarbonate IV 1 amp (IV push now) (10:57 06/12/2016 Bonifacio Boyer) (11:01 Tom Aquino) IV NS : initial bolus none -, then 200 mL/hr for 5h (NOW) (12:06 06/12/2016 Bonifacio Boyer) (12:15 Kathy Aquino) ORDER SHEET NOTES: Reason for Study: Central Line Placement [Electronically signed by Afshin Evans R.N. (15:49 06/12/2016)] [Electronically signed by Walter Cruz Dr. (10:31 06/19/2016)] [Electronically locked/signed by Afshin Evans R.N. (15:49 06/12/2016)]
--- NOTE | 2016-06-12 11:55 | ED NURSING NOTES ---
Clinical Report - Nurses [facility] [address] [place] [address] 06/12/2016 7:47 Patient: KAILYN NEWMAN TRIAGE Triage time 07:45 Jun 12 2016. Acuity: LEVEL 3. Chief Complaint: ALTERED MENTAL STATUS. Alert (Lethargic/thrashing). TY COMA SCORE: Ty Coma Scale: 7- eyes open to pain (2); best verbal response- none (1); best motor response- withdrawal (4). --08:07 Afshin Evans R.N. 07:57 06/12/16. BP: 82/67. HR: 101. RR: 12. O2 saturation: 84% on nasal cannula at 3 liters/minute. Temp: 84.1 F (rectal). Pain level now not taken due to patient condition: cannot qualify. --08:07 Afshin Evans R.N. Weight: 65.7 kg measured. Height/Length: 63 inches Estimated. BMI: 25.7. --08:01 Afshin Evans R.N. Medications Omeprazole Oral 20 mg, daily. --08:02 Afshin Evans R.N. Allergies NKDA. --08:02 Afshin Evans R.N. History Arrived by EMS, and (45). Historian: EMS. Unaccompanied. ( Pt found down in home. Her "Life Alarm" had been activated. EMS found her blood sugar was ~ 80). This started just prior to arrival and today. Treatment [employer]: (IV start in the field by EMS. one amp D50W given by EMS in the field.). SOCIAL HX: Alcohol use. (Bottle of Vodka found near pt). No infectious disease exposure. ABUSE ASSESSMENT: No report of abuse. --08:07 Afshin Evans R.N. Interventions ID band on patient. To treatment room. --08:07 Afshin Evans R.N. PHYSICAL ASSESSMENT 08:15. To room via stretcher. GENERAL / NEURO / PSYCH: The patient is somnolent, is pale and appears agitated. Decreased awareness. The patient is disoriented. Patient appears neat and clean. RESPIRATORY: Severe respiratory distress. CVS: Cardiac rhythm: atrial fibrillation. GI / : Abdomen soft. SKIN: Skin is warm and dry. Normal skin turgor. --08:52 Afshin Evans R.N. NURSING PROGRESS NOTES 07:47 06/12/2016 Site #1 in the right foot using a 20g needle (Field start by EMS). --09:09 Afshin Evans R.N. 07:47 06/12/2016 Started bag #1 1000 mL IV Fluids IV NS (Saline); at 250 mL/hr over 4 hour(s) via site #1. (Field start by EMS). --09:10 Afshin Evans R.N. <<STRICKEN ENTRY-- 07:47 06/12/2016 Started bag #1 1000 mL IV Fluids IV NS (Saline); at 250 mL/hr via site #1 --09:23 Afshin Evans R.N. --END STRIKE>> Correction. --15:39 Afshin Evans R.N. 07:47 06/12/2016 Started bag #2 1000 IV Fluids IV NS (Saline); at 250 mL/hr over 30 minute(s) via site #1 --15:39 Afshin Evans R.N. 07:48 06/12/16. Finger stick glucose: 41 mg/dL; result shown to the ED physician. --07:52 Afshin Evans R.N. 07:52 06/12/16. ( one Amp D50W 25 gms given). --07:56 Afshin Evans R.N. 08:07 06/12/16. BP: 81/60. HR: 108. RR: 12. --08:10 Afshin Evans R.N. 08:22 06/12/16. End tidal CO2: 11mmHg. --08:25 Afshin Evans R.N. Oxygen administered by nonrebreather mask at 15 liters. Patient gowned. Reassurance given to the patient. Patient identifiers checked. Side rails up x 2. Bed placed in lowest position. Brakes of bed on. Patient ready for evaluation- chart flagged and ED physician notified. --08:26 Afshin Evans R.N. 08:35 06/12/16. HR: 79. O2 saturation: 99% on ventilator. --08:43 Afshin Evans R.N. Patient transported to [place] by stretcher with O2 and nurse. (08:44 Jun 12 2016). --08:44 Afshin Evans R.N. 08:00 06/12/2016 Site #2 started via IV in the right upper arm with an 18g angiocath, with aseptic technique and good blood return; one attempt. Blood drawn: rainbow set and cultures x1. Labeled in the presence of the patient and sent to the lab. Saline lock flushed with 10 mL saline. --09:21 Afshin Evans R.N. 09:15 06/12/16. BP: 72/43. HR: 91. RR: 14 (regular). O2 saturation: 98% on ventilator. Pain level now unable to obtain. --09:28 Afshin Evans R.N. 09:15. ( Levophed gtt increased to11ooo/min). --09:29 Afshin Evans R.N. <<STRICKEN ENTRY-- 08:15 06/12/2016 IV Fluids IV NS Discontinued: bag #1 infused. Total amount infused: 1000 mL. IV patency established. IV site checked: no pain, redness, or swelling. IV flushed thoroughly. --09:40 Afshin Evans R.N. --END STRIKE>> Correction. --15:39 Afshin Evans R.N. 08:15 06/12/2016 IV Fluids IV NS Discontinued: bag #2 infused. Total amount infused: 1000 mL. IV patency established. IV site checked: no pain, redness, or swelling. IV flushed thoroughly. --15:39 Afshin Evans R.N. 08:21 06/12/16. Finger stick glucose: 293 mg/dL; performed by nurse; result shown to the ED physician. --08:21 Afshin Evans R.N. 08:28 06/12/2016 Ketamine IVP 50 mg given over 1 minute(s) via site #1. Allergies verified, confirmed 5 rights and sedative warning given to the patient. IV patency established. IV site checked: no pain, redness, or swelling. IV flushed thoroughly pre- and post-medication administration. IVP given by physician. --09:53 Afshin Evans R.N. 08:28 06/12/2016 Rocuronium * IVP 100mg --09:55 Afshin Evans R.N. 08:30 06/12/16. ( Pt intubated with [address] Zamorano). --08:34 Afshin Evans R.N. 08:40 06/12/16. ( CXR in room). --08:44 Afshin Evans R.N. 09:04 06/12/2016 Versed gtt * IVPB 5mg/hr --09:15 Afshin Evans R.N. 09:04 06/12/2016 Started 16 mcg of Levophed (Norepinephrine Bitartrate) Drip IV in bag #1 250 mL; at 10 mcg/min over 6 hour(s) via site #2 via IV pump. Allergies verified and confirmed 5 rights. IV patency established. IV site checked: no pain, redness, or swelling. IV flushed thoroughly pre- and post-medication administration. --09:23 Afshin Evans R.N. 09:25 06/12/16. ( Internal jugular IV access placed by Dr. Zamorano). --09:30 Afshin Evans R.N. 09:31 06/12/16. ( Xray in room to confirm central line placement). --09:31 Afshin Evans R.N. 09:32 06/12/16. Finger stick glucose: 366 mg/dL; performed by tech; result shown to the ED physician. --09:32 Afshin Evans R.N. 09:38 06/12/2016 Site #3 started via IV in the right with an 18g angiocath, with aseptic technique and good blood return; one attempt. Blood drawn: rainbow set and cultures x1. Labeled in the presence of the patient and sent to the lab. Saline lock flushed with 10 mL saline ((R) Internal Jugular placement by Dr. Zamorano). --09:48 Afshin Evans R.N. 09:39 06/12/2016 Started 2 gm of Ceftriaxone IVPB in bag #1 50 mL; at 100 mL/hr over 30 minute(s) via site #3; Allergies verified and confirmed 5 rights. IV patency established. IV site checked: no pain, redness, or swelling. IV flushed thoroughly pre- and post-medication administration. --09:49 Afshin Evans R.N. Critical value relayed to ED by Tonya. Critical value received by Ale ED Charge nurse. CO2: 2. Critical value. Verified lab result and patient ID. ED physician notifed of critical value. --10:10 Mercedes Alvarez R.N. 10:10 06/12/2016 Ceftriaxone IVPB Discontinued: bag #1 infused. Total amount infused: 50 mL. IV patency established. IV site checked: no pain, redness, or swelling. IV flushed thoroughly. --10:23 Afshin Evans R.N. 10:25 06/12/16. Patient transported to CT by stretcher with tech. --10:31 Afshin Evans R.N. Patient returned from CT with nurse and tech. ([id number]). --10:52 Mercedes Alvarez R.N. 10:56 06/12/2016 Sodium Bicarbonate IVP 50 meq given over 2 minute(s) via site #1. Allergies verified and confirmed 5 rights. IV patency established. IV site checked: no pain, redness, or swelling. IV flushed thoroughly pre- and post-medication administration. IVP given by RN. --11:01 Mercedes Alvarez R.N. 11:02 06/12/16. BP: 100/31. HR: 66. RR: 19. O2 saturation: 100%. Temp: 30.5 C. Pain level now: 0/10. Additional comments: temp sensing pickett. --11:03 Mercedes Alvarez R.N. Cardiac rhythm: normal sinus rhythm. --11:03 Mercedes Alvarez R.N. 11:10 06/12/2016 Fomeizole * IVPB 1000mg over 1/2 hour --11:17 Afshin Evans R.N. 11:21 06/12/2016 Levophed Drip IV via IV site #2 Rate Changed: bag #1 increased to 15 mcg/min via IV pump and fluid warmer. IV patency established. IV site checked: no pain, redness, or swelling. IV flushed thoroughly. Confirmed 5 Rights. --11:26 Mercedes Alvarez R.N. 11:25 06/12/16. 18 fr NG tube inserted in right nostril with no difficulty. Placement confirmed by return of gastric contents. Return: coffee-ground appearance. Attached to low and intermittent suction. Gastroccult positive (POC test reference range: negative); patient tolerated procedure well. (300 mL immediate return of coffee-ground liquid). --11:37 Afshin Evans R.N. 11:35 06/12/16. BP: 98/38. HR: 72. RR: 14. O2 saturation: 100% on ventilator. Temp: 30.9 C. Pain level now not taken due to patient condition. --11:46 Afshin Evans R.N. 11:40 06/12/2016 Fomeizole IVPB Discontinued: bag #1 infused. Total amount infused: 100 mL. IV patency established. IV site checked: no pain, redness, or swelling. IV flushed thoroughly. --11:47 Afshin Evans R.N. <<STRICKEN ENTRY-- 12:10 06/12/2016 Started bag #1 1000 mL IV Fluids IV NS (Saline); at 200 mL/hr over 5 hour(s) via site #3 via IV pump. Allergies verified and confirmed 5 rights. IV patency established. IV site checked: no pain, redness, or swelling. IV flushed thoroughly pre- and post-medication administration. --12:15 Afshin Evans R.N. --END STRIKE>> Correction. --15:38 Afshin Evans R.N. 12:26 06/12/16. BP: 106/43. HR: 78. RR: 14. O2 saturation: 100% on ventilator. Temp: 31.6 C. Pain level now not taken due to patient condition. --12:29 Afshin Evans R.N. ( Ventilator Settings: RR14, Tidal Vol 485ml ,InsTime1.0, Press Support 10, FiO2 40%. High Press Limit 40, Low Press Limit 10, Low Min Vol 3.0.). --12:33 Afshin Evans R.N. 12:37 06/12/16. ( Pickett Catheter emptied of 20mL uo.). --12:37 Afshin Evans R.N. 12:37 06/12/16. BP: 100/41. HR: 81 (regular). RR: 14. O2 saturation: 100%. Pain level now unable to obtain due to patient condition. --12:38 Afshin Evans R.N. 12:10 06/12/2016 Started bag #3 1000 IV Fluids IV NS (Saline); at 200 mL/hr over 5 hour(s) via site #3 via IV pump. Allergies verified and confirmed 5 rights. IV patency established. IV site checked: no pain, redness, or swelling. IV flushed thoroughly pre- and post-medication administration. --15:38 Afshin Evans R.N. 13:10 06/12/2016 Started 15 mcg of Levophed (Norepinephrine Bitartrate) Drip IV in bag #1 250 mL; at 15 mcg/hr over 2 hour(s) via site #3 via IV pump. Allergies verified and confirmed 5 rights. IV patency established. IV site checked: no pain, redness, or swelling. IV flushed thoroughly pre- and post-medication administration. --14:55 Afshin Evans R.N. 13:10 06/12/2016 IV Fluids IV NS Continued: at the rate of 200 mL/hr. 800 mL remaining bag #3. IV patency established. IV site checked: no pain, redness, or swelling. IV flushed thoroughly. --15:35 Afshin Evans R.N. 13:10 06/12/2016 Versed gtt IVPB Continued: upon discharge at the rate of 5 mL/hr. 35.4 mL remaining. IV patency established. IV site checked: no pain, redness, or swelling. IV flushed thoroughly. (Versed gtt, bag # 1). --15:41 Afshin Evans R.N. DISPOSITION / DISCHARGE 12:45 06/12/16. BP: 105/42. HR: 75 (regular and normal rate). RR: 14. O2 saturation: 100% on ventilator. Temp: 31.8 C. Pain level now unable to obtain due to patient condition. --14:16 Afshin Evans R.N. Departure time: 1310. --14:16 Afshin Evans R.N. 13:10. Transferred to [facility]. Summary of care provided to transport team and transfer facility. Transported via ambulance by transport team with monitor, IV, O2, emergency medications and ventilator. Report was given to a nurse via a phone call. Report included patient's care, treatment, medications, reviewed medication reconcilliation, and condition (including any recent changes or anticipated changes). All questions were answered. Report was acknowledged and care was transferred. (Attempted to give report to [facility] twice as pt left ED and my call was deferred each time.). Patient's personal items; items were placed in belongings bag and transported with the patient. --14:20 Afshin Evans R.N. Locked/Released at 06/12/2016 15:49 by Afshin Evans R.N.
--- NOTE | 2016-06-19 10:31 | ED MAR SUMMARY ---
..... Medication Administration Record [facility] [address] [place] [place] [address] Patient: KAILYN NEWMAN Visit ID: [id number] 81y, F Weight: 65.7 kg Height/Length: 63 in BMI: 25.7 ALLERGIES: NKDA Start 07:47 06/12/2016 Afshin Evans R.N. Medication Administered: IV NS (SALINE), Dose: IV Fluids over 4 hour(s), Rate: 250 mL/hr, Dispensed: 1000 mL bag, Site: #1 right foot. Medication Ordered: IV NS : initial bolus none -, then 250 mL/hr (NOW). Start 07:47 06/12/2016 Afshin Evans R.N., Stop 08:15 06/12/2016 Afshin Evans R.N. Medication Administered: IV NS (SALINE), Dose: IV Fluids over 30 minute(s), Rate: 250 mL/hr, Dispensed: 1000 mL bag, Site: #1 right foot. Medication Ordered: IV NS with %5 dextrose: initial bolus 2000 mL/hr, then none - for X1 (NOW) (through warmer). Given 08:28 06/12/2016 Afshin Evans R.N. Medication Administered: KETAMINE [IVP], Dose: 50 mg IVP over 1 minute(s), Site: #1 right foot. Medication Ordered: Ketamine IV 50 mg (for RSI). Given 08:28 06/12/2016 Afshin Evans R.N. Medication Administered: Rocuronium *, Dose: 100mg * IVP. Medication Ordered: - (rocuronium 100 mg IV push for RSI). Start 09:04 06/12/2016 Afshin Evans R.N., Continued Upon Discharge 13:10 06/12/2016 Afshin Evans R.N. Medication Administered: Versed gtt *, Dose: 5mg/hr * IVPB. Medication Ordered: Versed IV 5 mg/hr (start now, titrate to effect. max of 10 mg/hr). Start 09:04 06/12/2016 Afshin Evans R.N. Medication Administered: LEVOPHED [IV DRIP] (NOREPINEPHRINE BITARTRATE), Dose: 16 mcg Drip IV over 6 hour(s), Rate: 10 mcg/min, Dispensed: 250 mL bag, Site: #2 right upper arm. Medication Ordered: Levophed Drip IV : 0.5-12 mcg/min (NOW). Start 09:39 06/12/2016 Afshin Evans R.N., Stop 10:10 06/12/2016 Afshin Evans R.N. Medication Administered: CEFTRIAXONE [IVPB], Dose: 2 gm IVPB over 30 minute(s), Rate: 100 mL/hr, Dispensed: 50 mL bag, Site: #3 right. Medication Ordered: Ceftriaxone IV 2 gm/50mL (NOW). Given 10:56 06/12/2016 Mercedes Alvarez R.N. Medication Administered: SODIUM BICARBONATE [IVP], Dose: 50 meq IVP over 2 minute(s), Site: #1 right foot. Medication Ordered: Sodium Bicarbonate IV 1 amp (IV push now). Start 11:10 06/12/2016 Afshin Evans R.N., Stop 11:40 06/12/2016 Afshin Evans R.N. Medication Administered: Fomeizole *, Dose: 1000mg * IVPB. Medication Ordered: - (fomepizole 15 mg/kg over 30 minutes via IV). Start 12:10 06/12/2016 Afshin Evans R.N., Continued Upon Disposition 13:10 06/12/2016 Afshin Evans R.N. Medication Administered: IV NS (SALINE), Dose: IV Fluids over 5 hour(s), Rate: 200 mL/hr, Dispensed: 1000 mL bag, Site: #3 right. Medication Ordered: IV NS : initial bolus none -, then 200 mL/hr for 5h (NOW). Start 13:10 06/12/2016 Afshin Evans R.N. Medication Administered: LEVOPHED [IV DRIP] (NOREPINEPHRINE BITARTRATE), Dose: 15 mcg Drip IV over 2 hour(s), Rate: 15 mcg/hr, Dispensed: 250 mL bag, Site: #3 right. Medication Ordered: Levophed Drip IV : initial bolus 0, then 8 mcg/min for cont (HIGH ALERT MEDICATION, NOW) (titrate to map >60 max 20 mcg/min).
--- NOTE | 2016-06-19 10:31 | ED MED RECONCILIATION SUMMARY ---
Patient: KAILYN NEWMAN Medication Reconciliation Report [facility] VisitID: [id number] [address] [place] [address] 81y, F Registration Date/Time: 06/12/2016 Weight: 65.7 kg Height/Length: 63 in. BMI: 25.7 ALLERGIES: NKDA The patient's Home Medications are listed below: THE FOLLOWING MEDICATIONS NEED TO BE RECONCILED: Omeprazole Oral 20 mg, daily The source(s) of the original Home Medication information: Not obtained. The following Medications were given to the patient in the Emergency Department: IV NS IV Fluids bolus 0, then 250 mL/hr, administered: 06/12/2016 7:47:00 AM Versed gtt IVPB bolus 0, then 5mg/hr, administered: 06/12/2016 9:04:00 AM Levophed [IV DRIP] Drip IV bolus 0, then 16 mcg 10 mcg/min, administered: 06/12/2016 9:04:00 AM IV NS IV Fluids bolus 0, then 250 mL/hr, administered: 06/12/2016 7:47:00 AM Ceftriaxone [IVPB] IVPB bolus 0, then 2 gm 100 mL/hr, administered: 06/12/2016 9:39:00 AM Ketamine [IVP] IVP 50 mg, administered: 06/12/2016 8:28:00 AM Rocuronium IVP 100mg, administered: 06/12/2016 8:28:00 AM Sodium Bicarbonate [IVP] IVP 50 meq, administered: 06/12/2016 10:56:00 AM Fomeizole IVPB bolus 0, then 1000mg, administered: 06/12/2016 11:10:00 AM IV NS IV Fluids bolus 0, then 200 mL/hr, administered: 06/12/2016 12:10:00 PM Levophed [IV DRIP] Drip IV bolus 0, then 15 mcg 15 mcg/hr, administered: 06/12/2016 1:10:00 PM The following Medications were prescribed to the patient: None.
--- NOTE | 2016-06-19 10:31 | ED DISCHARGE INSTRUCTIONS ---
Patient: KAILYN NEWMAN General Instructions [facility] VisitID: [id number] [address] [place] [address] 81y, F Registration Date/Time: 06/12/2016 Severe anion gap acidosis refractory to treatment acute severe hypothermia acute severe hypotension acute toxic ingestion from toxic alcohol vs ethanol upper GI bleed severe depression severe lactic acidosis acute severe hypoglycemia urinary tract infection. (Electronically signed by Walter Cruz Dr. 06/19/2016 10:31)
--- NOTE | 2016-06-19 10:31 | ED MED RECONCILIATION SUMMARY ---
Patient: KAILYN NEWMAN Medication Reconciliation Report [facility] VisitID: [id number] [address] [place] [address] 81y, F Registration Date/Time: 06/12/2016 Weight: 65.7 kg Height/Length: 63 in. BMI: 25.7 ALLERGIES: NKDA The patient's Home Medications are listed below: THE FOLLOWING MEDICATIONS NEED TO BE RECONCILED: Omeprazole Oral 20 mg, daily The source(s) of the original Home Medication information: Not obtained. The following Medications were given to the patient in the Emergency Department: IV NS IV Fluids bolus 0, then 250 mL/hr, administered: 06/12/2016 7:47:00 AM Versed gtt IVPB bolus 0, then 5mg/hr, administered: 06/12/2016 9:04:00 AM Levophed [IV DRIP] Drip IV bolus 0, then 16 mcg 10 mcg/min, administered: 06/12/2016 9:04:00 AM IV NS IV Fluids bolus 0, then 250 mL/hr, administered: 06/12/2016 7:47:00 AM Ceftriaxone [IVPB] IVPB bolus 0, then 2 gm 100 mL/hr, administered: 06/12/2016 9:39:00 AM Ketamine [IVP] IVP 50 mg, administered: 06/12/2016 8:28:00 AM Rocuronium IVP 100mg, administered: 06/12/2016 8:28:00 AM Sodium Bicarbonate [IVP] IVP 50 meq, administered: 06/12/2016 10:56:00 AM Fomeizole IVPB bolus 0, then 1000mg, administered: 06/12/2016 11:10:00 AM IV NS IV Fluids bolus 0, then 200 mL/hr, administered: 06/12/2016 12:10:00 PM Levophed [IV DRIP] Drip IV bolus 0, then 15 mcg 15 mcg/hr, administered: 06/12/2016 1:10:00 PM The following Medications were prescribed to the patient: None.
--- NOTE | 2016-06-19 10:31 | ED DISCHARGE INSTRUCTIONS ---
Patient: KAILYN NEWMAN General Instructions [facility] VisitID: [id number] [address] [place] [address] 81y, F Registration Date/Time: 06/12/2016 Severe anion gap acidosis refractory to treatment acute severe hypothermia acute severe hypotension acute toxic ingestion from toxic alcohol vs ethanol upper GI bleed severe depression severe lactic acidosis acute severe hypoglycemia urinary tract infection. (Electronically signed by Walter Cruz Dr. 06/19/2016 10:31)
== END 2016-06-12 13:10 | disposition short-term general hospital (02) ==
LOC: ED SRH 07:46
DX: T51.91XA Toxic effect of unspecified alcohol, accidental (unintentional), initial encounter (principal); E87.2 Acidosis; T68.XXXA Hypothermia, initial encounter; I95.9 Hypotension, unspecified; K92.2 Gastrointestinal hemorrhage, unspecified; F32.9 Major depressive disorder, single episode, unspecified; E16.2 Hypoglycemia, unspecified; N39.0 Urinary tract infection, site not specified; F10.129 Alcohol abuse with intoxication, unspecified